=== PATIENT | male | born 1960 | race Caucasian/White ===

== ENCOUNTER 2016-08-03 07:30 | Emergency (ER) | payer BC ==
[2016-08-03] MEDS ORDERED: Albuterol/Ipratropium 3.0-0.5 MG/3 ML Neb Soln NEB ONE (08:07)
[2016-08-03] MEDS ORDERED: methylPREDNISolone Sodium Succinate 125 MG/2 ML SDV IVPUSH ONE (08:54)
[2016-08-03] MEDS ORDERED: Sodium Chloride 0.9% 10 ML Syringe FLUSH PRN (08:54)
[2016-08-03 08:55] LABS: CHLORIDE,CL 106 mmol/L (98-107); SODIUM,NA 142 mmol/L (136-145)
[2016-08-03] MEDS ORDERED: Furosemide 40 MG/4 ML VIAL IVPUSH ONE (08:57)
--- NOTE | 2016-08-03 08:57 | EDM.PDOC ---
ED HISTORY OF PRESENT ILLNESS - General Chief Complaint: Respiratory Problem Stated Complaint: SOB Time Seen by Provider: 08/03/16 08:05 Source of Information: Reports: Patient History Limitations: Reports: No limitations - History of Present Illness INITIAL COMMENTS - FREE TEXT/NARRATIVE: Patient reports of influenza type symptoms 2 weeks ago. He no longer is having the fevers or aches, but he has become progressively more short of breath. He no longer smokes but has 35 pack year history. History of HTN, irregular heart beat, hypercholesterolemia, heart failure, COPD. He states that he has had a difficult time sleeping due to feeling extreme shortness of breath. He denies headache, LOC, no nausea, vomiting, fever or chills. No diarrhea or abdominal pain. He does endorse chest pressure. Symptom Onset Date: 08/03/16 Timing/Duration: Reports: Getting worse, Gradual onset Severity: moderate Location, General: Reports: chest Quality: Reports: Pressure - Related Data Allergies/ADRs: Allergies Allergy/AdvReac Type Severity Reaction Status Date / Time No Known Drug Allergies Allergy Other Verified 08/03/16 12:37 Home Meds: Home Meds Carvedilol [Carvedilol] 1 tab PO BID 12/02/14 [History] Furosemide [Furosemide] 1 tab PO DAILY 12/02/14 [History] Warfarin [Coumadin] 1 tab PO DAILY 12/02/14 [History] atorvaSTATin Calcium [Atorvastatin Calcium] 1 tab PO DAILY 12/02/14 [History] Fexofenadine [Lou] 180 mg PO DAILY 08/03/16 [History] Pantoprazole [ProTONIX] 40 mg PO BID 08/03/16 [History] Past Medical History - Past Health History Medical/Surgical History: Denies Medical/Surgical History Cardiovascular History: Reports: Afib, High cholesterol, [place] Other Cardiovascular History: cardioversion Respiratory History: Reports: COPD - Past Surgical History Cardiovascular Surgical History: Reports: Cardiac Ablation Social & Family History - Tobacco Use Smoking Status *Q: Current Every Day Smoker Years of Tobacco use: 25 Packs/Tins Daily: 1 Used Tobacco, but Quit: No Second Hand Smoke Exposure: Yes - Alcohol Use Days Per Week of Alcohol Use: 0 Number of Drinks Per Day: 3 Total Drinks Per Week: 0 - Recreational Drug Use Recreational Drug Use: No ED ROS GENERAL - Review of Systems Review Of Systems: See Below Constitutional: Reports: no symptoms HEENT: Reports: No symptoms Respiratory: Reports: Shortness of Breath Cardiovascular: Reports: Chest pain (described as chest pressure) Endocrine: Reports: no symptoms GI/Abdominal: Reports: No symptoms : Reports: no symptoms Musculoskeletal: Reports: no symptoms Skin: Reports: no symptoms Neurological: Reports: No Symptoms Psychiatric: Reports: No symptoms Hematologic/Lymphatic: Reports: no symptoms Immunologic: Reports: no symptoms ED EXAM, GENERAL - Physical Exam Exam: See Below Exam Limited By: No limitations General Appearance: alert, WD/WN, mild distress Eye Exam: bilateral eye: EOMI, PERRL Ears: normal TMs Nose: normal inspection Throat/Mouth: Normal inspection, Normal oropharynx Head: atraumatic, normocephalic Neck: normal inspection, supple Respiratory/Chest: no respiratory distress, decreased breath sounds, crackles Cardiovascular: normal peripheral pulses, regular rate, rhythm, no edema GI/Abdominal: normal bowel sounds Back Exam: normal inspection, full range of motion Extremities: normal inspection, normal range of motion, non-tender, normal capillary refill Neurological: alert, oriented, CN II-XII intact, normal cognition, no motor/ sensory deficits, other (He is unable to give me accurate medical history) Psychiatric: normal affect, normal mood Skin Exam: Warm, Dry, Intact Lymphatic: no adenopathy Course - Vital Signs Last Recorded V/S: Last Vital Signs Temp 36.2 C 08/03/16 07:35 Pulse 80 08/03/16 10:35 Resp 18 08/03/16 10:35 BP 122/72 08/03/16 10:35 Pulse Ox 96 08/03/16 10:35 - Orders/Labs/Meds Orders: Active Orders 24 hr Category Date Time Status EKG Documentation Completion [RC] ROUTINE Care 08/03/16 08:05 Active RT Aerosol Therapy [RC] ASDIRECTED Care 08/03/16 08:07 Active Chest 2V [CR] Stat Exams 08/03/16 08:05 Taken Saline Lock Insert [OM.PC] Routine Oth 08/03/16 08:54 Ordered Labs: Laboratory Tests 08/03/16 08/03/16 08/03/16 Range/Units 08:17 08:17 08:17 WBC 6.0 (4.0-10.0) x10^3/uL RBC 4.53 (4.5-6.0) x10^6/uL Hgb 14.5 (14.0-18.0) g/dL Hct 40.6 (40.0-52.0) % MCV 89.6 (78.0-93.0) fL MCH 32.0 (26.0-32.0) pg MCHC 35.7 (32.0-36.0) g/dL RDW Coeff of Meg 12.6 (10.0-15.0) % Plt Count 154 (130-400) x10^3/uL Neut % (Auto) 69.0 (50.0-80.0) % Lymph % (Auto) 18.3 L (25.0-50.0) % [place] % (Auto) 12.2 H (2.0-11.0) % Eos % (Auto) 0.3 (0.0-4.0) % Baso % (Auto) 0.2 (0.2-1.2) % PT 18.3 H (10.0-12.8) SEC INR 1.6 L (2.0-3.5) D-Dimer, Quantitative (<=0.58) mg/LFEU Sodium 142 (136-145) mmol/L Potassium 4.1 (3.5-5.1) mmol/L Chloride 106 (98-107) mmol/L Carbon Dioxide 28 (21-32) mmol/L BUN 15 (7-18) mg/dL Creatinine 0.8 (0.70-1.30) mg/dL Est Cr Clr Drug Dosing TNP Estimated GFR (MDRD) > 60 Glucose 98 (74-106) mg/dL Calcium 8.5 (8.5-10.1) mg/dL Corrected Calcium 9.38 (8.5-10.1) mg/dL Total Bilirubin 1.3 H (0.2-1.0) mg/dL AST 19 (15-37) U/L ALT 28 (16-63) U/L Alkaline Phosphatase 90 (46-116) U/L Creatine Kinase 130 (39-308) U/L Creatine Kinase Index 0.7 (0.0-4.0) % CK-MB (CK-2) 0.9 (0.0-3.6) ng/mL Troponin I < 0.017 (<=0.056) ng/mL C-Reactive Protein 3.5 H (<=0.9) mg/dL B-Natriuretic Peptide 2941 H (<=125) pg/mL Total Protein 6.5 (6.4-8.2) g/dL Albumin 2.9 L (3.4-5.0) g/dL Globulin 3.6 Albumin/Globulin Ratio 0.81 04/10/17 Range/Units 08:17 WBC (4.0-10.0) x10^3/uL RBC (4.5-6.0) x10^6/uL Hgb (14.0-18.0) g/dL Hct (40.0-52.0) % MCV (78.0-93.0) fL MCH (26.0-32.0) pg MCHC (32.0-36.0) g/dL RDW Coeff of Meg (10.0-15.0) % Plt Count (130-400) x10^3/uL Neut % (Auto) (50.0-80.0) % Lymph % (Auto) (25.0-50.0) % [place] % (Auto) (2.0-11.0) % Eos % (Auto) (0.0-4.0) % Baso % (Auto) (0.2-1.2) % PT (10.0-12.8) SEC INR (2.0-3.5) D-Dimer, Quantitative < 0.19 (<=0.58) mg/LFEU Sodium (136-145) mmol/L Potassium (3.5-5.1) mmol/L Chloride (98-107) mmol/L Carbon Dioxide (21-32) mmol/L BUN (7-18) mg/dL Creatinine (0.70-1.30) mg/dL Est Cr Clr Drug Dosing Estimated GFR (MDRD) Glucose (74-106) mg/dL Calcium (8.5-10.1) mg/dL Corrected Calcium (8.5-10.1) mg/dL Total Bilirubin (0.2-1.0) mg/dL AST (15-37) U/L ALT (16-63) U/L Alkaline Phosphatase (46-116) U/L Creatine Kinase (39-308) U/L Creatine Kinase Index (0.0-4.0) % CK-MB (CK-2) (0.0-3.6) ng/mL Troponin I (<=0.056) ng/mL C-Reactive Protein (<=0.9) mg/dL B-Natriuretic Peptide (<=125) pg/mL Total Protein (6.4-8.2) g/dL Albumin (3.4-5.0) g/dL Globulin Albumin/Globulin Ratio Meds: Medications Discontinued Medications Generic Name Dose Route Start Last Admin Trade Name Freq PRN Reason Stop Dose Admin Albuterol/Ipratropium 3 ml 08/03/16 08:07 08/03/16 08:39 Duoneb 3.0-0.5 Mg/3 Ml NEB 08/03/16 08:08 3 ml ONETIME ONE Administration Furosemide 40 mg 08/03/16 08:57 08/03/16 09:08 Lasix IVPUSH 08/03/16 08:58 40 mg NOW ONE Administration Methylprednisolone Sodium Succinate 125 mg 08/03/16 08:54 08/03/16 09:12 Solu-Medrol IVPUSH 08/03/16 08:55 125 mg ONETIME ONE Administration Sodium Chloride 10 ml 08/03/16 08:54 Saline Flush FLUSH ASDIRECTED PRN Keep Vein Open - Re-Assessments/Exams Free Text/Narrative Re-Assessment/Exam: 08/03/16 09:06 Labs, EKG, and chest x-ray ordered. Departure - Departure Time of Disposition: 10:27 Disposition: Home, Self-Care 01 Condition: fair Clinical Impression: CAP (community acquired pneumonia) Acute exacerbation of CHF (congestive heart failure) Qualifiers: Congestive heart failure type: unspecified congestive heart failure type Qualified Code(s): I50.9 - Heart failure, unspecified Instructions: Chronic Obstructive Pulmonary Disease, [id number], Heart Failure, [id number], Community-Acquired Pneumonia, Adult, [id number] Referrals: Torrie Mejía MD [Primary Care Provider] - Forms: ED Department Discharge Additional Instructions: Take your medications as prescribed Follow up wit your primary provider as needed You likely have a beginning pneumonia mixed with an exacerbation of copd and heart failure. Increase your lasix to taking twice daily for 3 days Please call us with any questions or concerns in the meantime. - Problem List & Annotations (1) Acute exacerbation of CHF (congestive heart failure) SNOMED Code(s): 93495912 Code(s): I50.9 - HEART FAILURE, UNSPECIFIED Status: Acute Priority: Low Qualifiers: Congestive heart failure type: unspecified congestive heart failure type Qualified Code(s): I50.9 - Heart failure, unspecified (2) CAP (community acquired pneumonia) SNOMED Code(s): 904568915 Code(s): J18.9 - PNEUMONIA, UNSPECIFIED ORGANISM Status: Acute Priority: Medium - Problem List Review Problem List Initiated/Reviewed/Updated: Yes - My Orders Last 24 Hours: My Active Orders 08/03/16 08:05 EKG Documentation Completion [RC] ROUTINE Chest 2V [CR] Stat 08/03/16 08:07 RT Aerosol Therapy [RC] ASDIRECTED 08/03/16 08:54 Saline Lock Insert [OM.PC] Routine - Assessment/Plan Last 24 Hours: My Active Orders 08/03/16 08:05 EKG Documentation Completion [RC] ROUTINE Chest 2V [CR] Stat 08/03/16 08:07 RT Aerosol Therapy [RC] ASDIRECTED 08/03/16 08:54 Saline Lock Insert [OM.PC] Routine Assessment:: Heart failure Copd exacerbation Community acquired pneumonia Plan: Take your medications as prescribed Follow up wit your primary provider as needed You likely have a beginning pneumonia mixed with an exacerbation of copd and heart failure. Increase your lasix to taking twice daily for 3 days Please call us with any questions or concerns in the meantime.
[2016-08-03 13:24] VITALS: BP 122/72
== END 2016-08-03 10:35 | disposition home or self-care (01) ==
LOC: VM.ED 07:30
DX: J18.9 Pneumonia, unspecified organism (principal); I50.9 Heart failure, unspecified; Z79.899 Other long term (current) drug therapy; Z79.01 Long term (current) use of anticoagulants; F17.210 Nicotine dependence, cigarettes, uncomplicated
CPT/HCPCS: 36415; 71020; 80053; 82550; 82553; 83880; 84484; 85025; 85379; 85610; 86140; 93005; 96374; 96375; 99285; J1940; J2930; 99284-GF

== ENCOUNTER 2016-08-12 09:14 | Emergency (ER) | payer BC ==
[2016-08-12 09:29] VITALS: BP 118/75
--- NOTE | 2016-08-12 09:50 | EDM.PDOC ---
ED HISTORY OF PRESENT ILLNESS - General Chief Complaint: Respiratory Problem Stated Complaint: sob Time Seen by Provider: 08/12/16 09:36 Source of Information: Reports: Patient History Limitations: Reports: No limitations - History of Present Illness INITIAL COMMENTS - FREE TEXT/NARRATIVE: Patient seen by myself 08/03/16 with similar complaints. I did treat for pneumonia, COPD, and heart failure exacerbations. He states he did feel better late last week, but has been getting short of breath again. He states he is not able to lay flat and sleeps or sits with an incline. He also says the shortness of breath worsens with activity and climbing stairs. He denies any symptom changing or worsening since his last visit on 08/03/16 in which [place], PE was ruled out. He did not start the inhaler that I had prescribed due to expense and his insurance having lapsed. He says he has some hot flashes and chills from time to time but denies any fever. No nausea/vomiting, headaches, or chest pressure. No neurologic changes. Symptom Onset Date: 08/03/16 Timing/Duration: Reports: Gradual onset, Intermittent Severity: mild Location, General: Reports: chest Improves with: Reports: Medication Worsens with: Reports: Movement Associated Symptoms (General): Reports: shortness of breath - Related Data Allergies/ADRs: Allergies Allergy/AdvReac Type Severity Reaction Status Date / Time No Known Drug Allergies Allergy Other Verified 08/12/16 09:32 Home Meds: Home Meds Carvedilol [Carvedilol] 1 tab PO BID 12/02/14 [History] Furosemide [Furosemide] 1 tab PO DAILY 12/02/14 [History] Warfarin [Coumadin] 1 tab PO DAILY 12/02/14 [History] atorvaSTATin Calcium [Atorvastatin Calcium] 1 tab PO DAILY 12/02/14 [History] Fexofenadine [Lou] 180 mg PO DAILY 08/03/16 [History] Pantoprazole [ProTONIX] 40 mg PO BID 08/03/16 [History] Past Medical History - Past Health History Medical/Surgical History: Denies Medical/Surgical History Cardiovascular History: Reports: Afib, High cholesterol, [place] Other Cardiovascular History: cardioversion Respiratory History: Reports: COPD - Past Surgical History Cardiovascular Surgical History: Reports: Cardiac Ablation Social & Family History - Tobacco Use Smoking Status *Q: Former Smoker Years of Tobacco use: 25 Packs/Tins Daily: 1 Used Tobacco, but Quit: Yes Month Tobacco Last Used: Apr 2016 Second Hand Smoke Exposure: Yes - Caffeine Use Caffeine Use: Reports: None - Alcohol Use Days Per Week of Alcohol Use: 0 Number of Drinks Per Day: 3 Total Drinks Per Week: 0 - Recreational Drug Use Recreational Drug Use: No ED ROS GENERAL - Review of Systems Review Of Systems: See Below Constitutional: Reports: chills HEENT: Reports: No symptoms Respiratory: Reports: Shortness of Breath Cardiovascular: Reports: No symptoms Endocrine: Reports: no symptoms GI/Abdominal: Reports: No symptoms : Reports: no symptoms Musculoskeletal: Reports: no symptoms Skin: Reports: no symptoms Neurological: Reports: No Symptoms Psychiatric: Reports: No symptoms Hematologic/Lymphatic: Reports: no symptoms Immunologic: Reports: no symptoms ED EXAM, GENERAL - Physical Exam Exam: See Below Exam Limited By: No limitations General Appearance: alert, WD/WN, no apparent distress Eye Exam: bilateral eye: EOMI, PERRL Ears: normal TMs Throat/Mouth: Normal inspection, Normal oropharynx Head: atraumatic, normocephalic Neck: normal inspection, supple, non-tender, full range of motion Respiratory/Chest: no respiratory distress, lungs clear, no accessory muscle use , decreased breath sounds Cardiovascular: normal peripheral pulses, regular rate, rhythm GI/Abdominal: normal bowel sounds Extremities: normal inspection, normal range of motion, non-tender, no pedal edema, normal capillary refill Neurological: alert, oriented, CN II-XII intact, normal cognition, normal gait Psychiatric: normal affect, normal mood Skin Exam: Warm, Dry, Intact, Normal color Lymphatic: no adenopathy Course - Vital Signs Last Recorded V/S: Last Vital Signs Temp 35.8 C 08/12/16 09:25 Pulse 100 08/12/16 09:25 Resp 16 08/12/16 09:25 BP 118/75 08/12/16 09:25 Pulse Ox 95 08/12/16 09:25 Departure - Departure Time of Disposition: 11:08 Disposition: Home, Self-Care 01 Condition: good Clinical Impression: Congestive heart failure Instructions: Shortness of Breath, Wxii-le-Niad, Chronic Obstructive Pulmonary Disease Exacerbation, [id number], Heart Failure, [id number] Forms: ED Department Discharge Additional Instructions: You do appear to be having an exacerbation of COPD as well as additional symptoms related to your CHF. I recommend a follow up visit with your primary doctor to have an increase in your lasix if needed, you may also need your lungs evaluated for worsening of your COPD. I did give you some additional lasix today, as well as a nebulizer. Please call with any questions or concerns. - Problem List & Annotations (1) COPD exacerbation SNOMED Code(s): 567097639, 950131096 Code(s): J44.1 - CHRONIC OBSTRUCTIVE PULMONARY DISEASE W (ACUTE) EXACERBATION Status: Acute Priority: Low Current Visit: No (2) Congestive heart failure SNOMED Code(s): 79996794 Code(s): I50.9 - HEART FAILURE, UNSPECIFIED Status: Acute Priority: Low Current Visit: Yes Qualifiers: Congestive heart failure type: unspecified congestive heart failure type Congestive heart failure chronicity: acute on chronic Qualified Code(s): I50.9 - Heart failure, unspecified - Problem List Review Problem List Initiated/Reviewed/Updated: Yes - Assessment/Plan Assessment:: COPD exacerbation Heart Failure Plan: You do appear to be having an exacerbation of COPD as well as additional symptoms related to your CHF. I recommend a follow up visit with your primary doctor to have an increase in your lasix if needed, you may also need your lungs evaluated for worsening of your COPD. I did give you some additional lasix today, as well as a nebulizer. Please call with any questions or concerns.
[2016-08-12] MEDS ORDERED: Albuterol/Ipratropium 3.0-0.5 MG/3 ML Neb Soln NEB ONE (09:54)
[2016-08-12 10:45] LABS: CHLORIDE,CL 107 mmol/L (98-107); SODIUM,NA 143 mmol/L (136-145)
[2016-08-12] MEDS ORDERED: Furosemide 40 MG Tab PO ONE (11:00)
== END 2016-08-12 11:15 | disposition home or self-care (01) ==
LOC: VM.ED 09:14
DX: I50.9 Heart failure, unspecified (principal); I48.91 Unspecified atrial fibrillation; E78.00 Pure hypercholesterolemia, unspecified; I25.2 Old myocardial infarction; J44.9 Chronic obstructive pulmonary disease, unspecified; Z79.899 Other long term (current) drug therapy; Z87.891 Personal history of nicotine dependence
CPT/HCPCS: 36415; 71020; 80053; 83605; 83880; 85025; 86140; 94640; 99283; A9270

== ENCOUNTER 2017-07-27 07:10 | Emergency (ER) | payer OTHER, BC ==
--- NOTE | 2017-07-27 07:38 | EDM.PDOC ---
ED HPI GENERAL MEDICAL PROBLEM - General Chief Complaint: Laceration Stated Complaint: LACERATION Time Seen by Provider: 07/27/17 07:34 Source of Information: Reports: Patient, RN, RN Notes Reviewed History Limitations: Reports: No Limitations - History of Present Illness INITIAL COMMENTS - FREE TEXT/NARRATIVE: Patient presents to the ED at [facility] after he sustained a laceration to the right arm. Patient states he was putting in a lightbulb, when the bulb broke , causing the laceration. This is a work related injury. Patient denies any numbness, tingling, or paresthesia of any extremity. No previous injuries to the right arm. Onset: Today - Related Data Allergies Allergy/AdvReac Type Severity Reaction Status Date / Time No Known Drug Allergies Allergy Other Verified 08/12/16 09:32 Home Meds: Home Meds Carvedilol 1 tab PO BID 12/02/14 [History] Furosemide 1 tab PO DAILY 12/02/14 [History] Warfarin [Coumadin] 1 tab PO DAILY 12/02/14 [History] atorvaSTATin Calcium [Atorvastatin Calcium] 1 tab PO DAILY 12/02/14 [History] Fexofenadine [Lou] 180 mg PO DAILY 08/03/16 [History] Pantoprazole [ProTONIX] 40 mg PO BID 08/03/16 [History] Past Medical History - Past Health History Medical/Surgical History: Denies Medical/Surgical History Cardiovascular History: Reports: Afib, High Cholesterol, [place] Other Cardiovascular History: cardioversion Respiratory History: Reports: COPD - Past Surgical History Cardiovascular Surgical History: Reports: Cardiac Ablation Social & Family History - Tobacco Use Smoking Status *Q: Former Smoker Years of Tobacco use: 25 Packs/Tins Daily: 1 Used Tobacco, but Quit: Yes Month/Year Tobacco Last Used: Apr 2016 Second Hand Smoke Exposure: Yes - Caffeine Use Caffeine Use: Reports: None - Alcohol Use Days Per Week of Alcohol Use: 0 Number of Drinks Per Day: 3 Total Drinks Per Week: 0 - Recreational Drug Use Recreational Drug Use: No ED ROS GENERAL - Review of Systems Review Of Systems: See Below Constitutional: Denies: Fever, Chills, Weakness Respiratory: Denies: Shortness of Breath, Cough Cardiovascular: Denies: Chest Pain, Palpitations GI/Abdominal: Denies: Abdominal Pain, Nausea, Vomiting Skin: Reports: Wound (laceration to right arm) Neurological: Reports: No Symptoms ED EXAM, SKIN/RASH Exam: See Below Exam Limited By: No Limitations General Appearance: Alert, No Apparent Distress Respiratory/Chest: No Respiratory Distress, Lungs Clear, Normal Breath Sounds Cardiovascular: Normal Peripheral Pulses, Regular Rate, Rhythm Peripheral Pulses: 2+: Radial (L), Radial (R) GI/Abdominal: Normal Bowel Sounds, Soft, Non-Tender Neurological: Alert, Oriented Skin: Warm, Dry, Wound/Incision (laceration to the right arm; minimal bleed; wound clean) Location, Skin: Upper Extremity, Right ED SKIN PROCEDURES - Laceration/Wound Repair Right Wrist Lac/Wound length In cm: 2 Appearance: Subcutaneous, Linear, Clean Distal NVT: Neuro & Vascular Intact, No Tendon Injury Anesthetic Type: Local Local Anesthesia - Lidocaine (Xylocaine): 2% with EPI Local Anesthetic Volume: 5cc Skin Prep: Chlorhexidine (Hibiciens), Saline Saline Irrigation (cc's): 500 Exploration/Debridement/Repair: Wound Explored, In a Bloodless Field, Explored to Base, No Foreign Material Found, Wound Margins Revised Closed with: Sutures Suture Size: 4-0 # of Sutures: 3 Suture Type: Nylon, Interrupted, Simple Sterile Dressing Applied: Nurse Tetanus Status Addressed: Yes Complications: No Course - Orders/Labs/Meds Orders: Active Orders 24 hr Category Date Time Status EKG 12 Lead [EKG Documentation Completion] [RC] STAT Care 07/27/17 07:35 Inactive Meds: Medications Discontinued Medications Generic Name Dose Route Start Last Admin Trade Name Dottie PRN Reason Stop Dose Admin Lidocaine/Epinephrine 20 ml 07/27/17 08:04 Xylocaine 2% With Epinephrine 1:100,000 INJECT 07/27/17 08:05 ONETIME ONE Departure - Departure Time of Disposition: 08:39 Disposition: Home, Self-Care 01 Condition: Good Clinical Impression: Encounter related to worker's compensation claim Wrist laceration Qualifiers: Encounter type: initial encounter Laterality: right Qualified Code(s): S61.511A - Laceration without foreign body of right wrist, initial encounter - Discharge Information Instructions: Laceration Care, Adult, [place]u-en-Awja, Stitches, Martha, or Adhesive Wound Closure, [id number] Referrals: Debby Montelongo MD [Primary Care Provider] - Forms: ED Department Discharge Additional Instructions: 1. Stay well hydrated and rest 2. Leave bandage on for 24 hours, then remove 3. Keep area clean and dry 4. May shower/bathe as usual 5. See Dr. Montelongo in 10 days for a recheck and possible suture removal 6. Call with any questions/concerns - Problem List Review Problem List Initiated/Reviewed/Updated: Yes - My Orders Last 24 Hours: My Active Orders 07/27/17 07:35 EKG 12 Lead [EKG Documentation Completion] [RC] STAT - Assessment/Plan Last 24 Hours: My Active Orders 07/27/17 07:35 EKG 12 Lead [EKG Documentation Completion] [RC] STAT
[2017-07-27] MEDS ORDERED: Lidocaine 2% with EPINEPHrine 1:100,000 20 ML MDV INJECT ONE (08:04)
[2017-07-27 16:28] VITALS: BP 108/61
== END 2017-07-27 08:50 | disposition home or self-care (01) ==
LOC: VM.ED 07:10
DX: S61.511A Laceration without foreign body of right wrist, initial encounter (principal); I48.91 Unspecified atrial fibrillation; E78.00 Pure hypercholesterolemia, unspecified; I25.2 Old myocardial infarction; J44.9 Chronic obstructive pulmonary disease, unspecified; Y99.0 Civilian activity done for income or pay; Z87.891 Personal history of nicotine dependence; Z79.899 Other long term (current) drug therapy; W26.8XXA Contact with other sharp object(s), not elsewhere classified, initial encounter
CPT/HCPCS: 12001; 99283

== ENCOUNTER 2017-12-03 10:34 | Emergency (ER) | payer BC, OTHER ==
[2017-12-03 10:43] VITALS: BP 134/78
[2017-12-03] MEDS: Lidocaine 1% 30 ML SDV INJECT ONE (11:15)
--- NOTE | 2017-12-03 11:28 | EDM.PDOC ---
ED HPI GENERAL MEDICAL PROBLEM - General Chief Complaint: Laceration Stated Complaint: INJURED AT WORK Time Seen by Provider: 12/03/17 10:57 Source of Information: Reports: Patient History Limitations: Reports: No Limitations - History of Present Illness INITIAL COMMENTS - FREE TEXT/NARRATIVE: The patient is on Coumadin. He was not wearing any gloves. He was loosening a bolt when his hand slipped and lacerated his right hand. He is right-handed. He has had a tetanus booster in 2014. We did have to apply sutures. I will have him follow-up with his primary doctor and have the sutures removed. This is a WSI claim. I did give him modified duty. However he did want the rest of today off but I did give him modified duty because of the Coumadin. Onset: Today Location: Reports: Upper Extremity, Right Severity: Moderate Treatments MEMS ENGINEER: Reports: Other (see below) (Pressure) - Related Data Allergies Allergy/AdvReac Type Severity Reaction Status Date / Time No Known Drug Allergies Allergy Other Verified 12/03/17 10:44 Home Meds: Home Meds Carvedilol 25 mg PO BID 12/02/14 [History] Furosemide 1 tab PO DAILY 12/02/14 [History] Warfarin [Coumadin] 1 tab PO DAILY 12/02/14 [History] atorvaSTATin Calcium [Atorvastatin Calcium] 1 tab PO DAILY 12/02/14 [History] Fexofenadine [Lou] 180 mg PO DAILY 08/03/16 [History] Pantoprazole [ProTONIX] 40 mg PO BID 08/03/16 [History] Amiodarone [Cordarone] 200 mg PO DAILY 12/03/17 [History] Lisinopril [Prinivil] 10 mg PO DAILY 12/03/17 [History] Umeclidinium Brm/Vilanterol Tr [Anoro Ellipta 62.5-25 MCG] 1 puff IH DAILY 12/03 [History] buPROPion HCl [Wellbutrin Xl] 150 mg PO DAILY 12/03/17 [History] Past Medical History - Past Health History Medical/Surgical History: Denies Medical/Surgical History Cardiovascular History: Reports: Afib, High Cholesterol, [place] Other Cardiovascular History: cardioversion Respiratory History: Reports: COPD - Past Surgical History Cardiovascular Surgical History: Reports: Cardiac Ablation Social & Family History - Tobacco Use Smoking Status *Q: Unknown Ever Smoked - Caffeine Use Caffeine Use: Reports: None ED ROS GENERAL - Review of Systems Review Of Systems: ROS reveals no pertinent complaints other than HPI. ED EXAM, SKIN/RASH Exam: See Below Exam Limited By: No Limitations General Appearance: Alert, WD/WN, Mild Distress Ears: Normal External Exam Nose: Normal Inspection Throat/Mouth: Normal Inspection Head: Atraumatic, Normocephalic Neck: Normal Inspection, Supple Respiratory/Chest: No Respiratory Distress, Lungs Clear Cardiovascular: Normal Peripheral Pulses, Regular Rate, Rhythm Extremities: Other (3 cm laceration on the back of his hand. This is in a semi- lunar crescent shape. The wound is gaping and through the dermis.) Neurological: Alert, Oriented Psychiatric: Normal Affect Skin: Warm, Dry ED SKIN PROCEDURES - Laceration/Wound Repair Right Dorsal Hand Appearance: Superficial Distal NVT: Neuro & Vascular Intact Anesthetic Type: Local Local Anesthesia - Lidocaine (Xylocaine): 1% Plain Local Anesthetic Volume: Other (10) Saline Irrigation (cc's): 500 Exploration/Debridement/Repair: Wound Explored, In a Bloodless Field, Explored to Base, No Foreign Material Found Closed with: Sutures Suture Size: 4-0 # of Sutures: 6 Suture Type: Interrupted Drain Placement: No Sterile Dressing Applied: Nurse Tetanus Status Addressed: Yes Complications: No Progress/Comments: Nominal amount of blood loss. Patient tolerated the procedure quite well. Course - Vital Signs Last Recorded V/S: Last Vital Signs Temp 37.0 C 12/03/17 10:35 Pulse 88 12/03/17 10:35 Resp 18 12/03/17 10:35 BP 134/78 12/03/17 10:35 Pulse Ox 96 12/03/17 10:35 - Orders/Labs/Meds Meds: Medications Discontinued Medications Generic Name Dose Route Start Last Admin Trade Name Dottie PRN Reason Stop Dose Admin Lidocaine HCl 30 ml 12/03/17 11:01 12/03/17 11:15 Xylocaine-Mpf 1% INJECT 12/03/17 11:02 30 ml ONETIME ONE Administration Departure - Departure Time of Disposition: 11:28 Disposition: Home, Self-Care 01 Condition: Good Clinical Impression: Laceration of hand, right Qualifiers: Encounter type: initial encounter Foreign body presence: without foreign body Qualified Code(s): S61.411A - Laceration without foreign body of right hand, initial encounter - Discharge Information Instructions: Laceration Care, Adult Referrals: Debby Montelongo MD [Primary Care Provider] - Forms: ED Department Discharge, ED Return to Work/School Form Additional Instructions: Follow-up in 1 week for suture removal with Debby Montelongo if available. Change dressing daily. Look for signs of infection. Allow the soapy shower water to irrigate over the wound if tolerable. Apply triple antibiotic ointment daily. Keep clean. Sutures placed.
== END 2017-12-03 11:50 | disposition home or self-care (01) ==
LOC: VM.ED 10:34
DX: S61.411A Laceration without foreign body of right hand, initial encounter (principal); E78.00 Pure hypercholesterolemia, unspecified; I48.91 Unspecified atrial fibrillation; I25.2 Old myocardial infarction; Z79.01 Long term (current) use of anticoagulants; Z79.899 Other long term (current) drug therapy; W26.8XXA Contact with other sharp object(s), not elsewhere classified, initial encounter
CPT/HCPCS: 12001; 12002; 99283

== ENCOUNTER 2018-08-10 10:16 | Emergency (ER) | payer OTHER ==
[2018-08-10] MEDS ORDERED: Sodium Chloride 0.9% 1,000 ML IV ONE ×3 (10:36→11:38)
[2018-08-10] MEDS ORDERED: Sodium Chloride 0.9% 10 ML Syringe FLUSH PRN (10:36)
[2018-08-10 11:24] LABS: CHLORIDE,CL 107 mmol/L (98-107); SODIUM,NA 142 mmol/L (136-145)
[2018-08-10 11:25] LABS: ANION GAP 14.4 mmol/L (10-20)
[2018-08-10] MEDS ORDERED: Sodium Chloride 0.9% 500 ML IV SCH (11:30)
[2018-08-10] MEDS ORDERED: Fluorescein 1 MG Ophth Strip EYERT ONE (11:32)
[2018-08-10] MEDS ORDERED: Sodium Chloride 0.9% 500 ML IV ONE (11:34)
[2018-08-10] MEDS ORDERED: Proparacaine 0.5% Ophth Soln 15 ML Bottle EYERT PRN (11:34)
--- NOTE | 2018-08-10 11:37 | EDM.PDOC ---
ED HPI GENERAL MEDICAL PROBLEM - General Chief Complaint: Cardiovascular Problem Stated Complaint: RACING HEART Time Seen by Provider: 08/10/18 10:18 Source of Information: Reports: Patient History Limitations: Reports: No Limitations - History of Present Illness INITIAL COMMENTS - FREE TEXT/NARRATIVE: Pt. presents to ER with complaints of palpitations that started this AM while he was hanging sheet rock today. Pt. has a history of dilated cardiomyopathy, CHF, and mitral regurgitation. He has a history of a-fib with occasional episodes of RVR. He also has a history of previous v-tach. Pt. has an AICD implanted and this did not discharge during the episode of palpitations this AM. Symptoms had resolved by the time he arrived to ER. He complains of headache and fatigue. No shortness of breath. According to his medical record he has had episodes of syncope in the past as well. Pt. denies any recent illness. No chest pain. No nausea, vomiting, or diarrhea. No abdominal pain. Denies any fever or chills. No cough. Pt. also complains of discomfort in his R eye. He states that he has sheet rock debris in the eye. Denies any vision loss or change. Onset: Today Location: Reports: Generalized Left Headache Pain Score (Numeric/FACES): 8 - Related Data Allergies Allergy/AdvReac Type Severity Reaction Status Date / Time No Known Drug Allergies Allergy Other Verified 08/10/18 10:47 Home Meds: Home Meds Carvedilol 25 mg PO BID 12/02/14 [History] Furosemide 1 tab PO DAILY 12/02/14 [History] Warfarin [Coumadin] 1 tab PO DAILY 12/02/14 [History] atorvaSTATin Calcium [Atorvastatin Calcium] 1 tab PO DAILY 12/02/14 [History] Fexofenadine [Lou] 180 mg PO DAILY 08/03/16 [History] Pantoprazole [ProTONIX] 40 mg PO BID 08/03/16 [History] Amiodarone [Cordarone] 200 mg PO DAILY 12/03/17 [History] Lisinopril [Prinivil] 10 mg PO DAILY 12/03/17 [History] Umeclidinium Brm/Vilanterol Tr [Anoro Ellipta 62.5-25 MCG] 1 puff IH DAILY 12/03 [History] buPROPion HCl [Wellbutrin Xl] 150 mg PO DAILY 12/03/17 [History] Past Medical History - Past Health History Medical/Surgical History: Denies Medical/Surgical History HEENT History: Reports: Allergic Rhinitis, Other (See Below) Other HEENT History: allergic conjunctivitis Cardiovascular History: Reports: Afib, Heart Failure, High Cholesterol, [place], Pacemaker, Syncope Other Cardiovascular History: cardioversion. afib with RV. mitral regurgitation. dilated cardiomyopathy. hx Vtach Respiratory History: Reports: Bronchitis, Recurrent, COPD Gastrointestinal History: Reports: Colon Polyp, Gastritis, GERD, Helicobacter Pylori - Past Surgical History Cardiovascular Surgical History: Reports: AICD, Cardiac Ablation Other Cardiovascular Surgeries/Procedures: Biotronik Single chamber defibrillator(ICD) GI Surgical History: Reports: Colonoscopy, EGD Social & Family History - Tobacco Use Smoking Status *Q: Current Every Day Smoker Years of Tobacco use: 38 Packs/Tins Daily: 0.3 - Caffeine Use Caffeine Use: Reports: None - Recreational Drug Use Recreational Drug Use: No ED ROS GENERAL - Review of Systems Review Of Systems: See Below Constitutional: Reports: No Symptoms HEENT: Reports: No Symptoms Respiratory: Reports: No Symptoms Cardiovascular: Reports: Palpitations GI/Abdominal: Reports: No Symptoms : Reports: No Symptoms Musculoskeletal: Reports: No Symptoms Skin: Reports: No Symptoms Neurological: Reports: No Symptoms Psychiatric: Reports: No Symptoms Hematologic/Lymphatic: Reports: No Symptoms Immunologic: Reports: No Symptoms ED EXAM, GENERAL - Physical Exam Exam: See Below Exam Limited By: No Limitations General Appearance: Alert, WD/WN, No Apparent Distress Eye Exam: Bilateral Eye: EOMI, Foreign Body (small, white foreign body noted in center of pupil), PERRL Throat/Mouth: Normal Inspection, Normal Lips, Normal Teeth, Other (oral mucosa is dry) Head: Atraumatic, Normocephalic Neck: Normal Inspection, Supple, Non-Tender Respiratory/Chest: No Respiratory Distress, Lungs Clear, Normal Breath Sounds, No Accessory Muscle Use Cardiovascular: Normal Peripheral Pulses, No Edema, No JVD, Irregularly Irregular Peripheral Pulses: 3+: Radial (L), Radial (R) GI/Abdominal: Normal Bowel Sounds, Soft, Non-Tender, No Organomegaly, No Distention, No Mass (Male) Exam: Deferred Rectal (Males) Exam: Deferred Back Exam: Normal Inspection, Full Range of Motion Extremities: Normal Inspection, Normal Range of Motion, Non-Tender, Normal Capillary Refill Neurological: Alert, Oriented, CN II-XII Intact, Normal Cognition, Normal Gait, Normal Reflexes Psychiatric: Normal Affect, Normal Mood Skin Exam: Warm, Dry Course - Vital Signs Last Recorded V/S: Last Vital Signs Temp 36.9 C 08/10/18 10:18 Pulse 63 08/10/18 12:06 Resp 16 08/10/18 11:10 BP 97/42 L 08/10/18 12:06 Pulse Ox 90 L 08/10/18 11:10 - Orders/Labs/Meds Orders: Active Orders 24 hr Category Date Time Status EKG Documentation Completion [RC] STAT Care 08/10/18 10:32 Active Sodium Chloride 0.9% [Normal Saline] 1,000 ml Med 08/10/18 11:38 Active IV .BOLUS Sodium Chloride 0.9% [Saline Flush] Med 08/10/18 10:36 Active 10 ml FLUSH ASDIRECTED PRN Peripheral IV Insertion Adult [OM.PC] Routine Oth 08/10/18 10:36 Ordered Medication Orders Sodium Chloride (Normal Saline) 1,000 mls @ 1,000 mls/hr IV .BOLUS ONE Stop: 08/10/18 12:37 Last Admin: 08/10/18 11:40 Dose: 1,000 mls/hr Sodium Chloride (Saline Flush) 10 ml FLUSH ASDIRECTED PRN PRN Reason: Keep Vein Open Labs: Laboratory Tests 08/10/18 08/10/18 08/10/18 Range/Units 10:47 10:47 10:47 WBC 6.6 (4.0-10.0) x10^3/uL RBC 4.45 L (4.5-6.0) x10^6/uL Hgb 14.8 (14.0-18.0) g/dL Hct 41.6 (40.0-52.0) % MCV 93.5 H D (78.0-93.0) fL MCH 33.3 H (26.0-32.0) pg MCHC 35.6 (32.0-36.0) g/dL RDW Coeff of Meg 13.0 (10.0-15.0) % Plt Count 135 D (130-400) x10^3/uL Neut % (Auto) 66.5 (50.0-80.0) % Lymph % (Auto) 23.6 L (25.0-50.0) % [place] % (Auto) 7.9 (2.0-11.0) % Eos % (Auto) 1.8 (0.0-4.0) % Baso % (Auto) 0.2 (0.2-1.2) % PT 32.9 H (10.0-12.8) SEC INR 2.9 (2.0-3.5) Sodium 142 (136-145) mmol/L Potassium 4.4 (3.5-5.1) mmol/L Chloride 107 (98-107) mmol/L Carbon Dioxide 25 (21-32) mmol/L Anion Gap 14.4 (10-20) mmol/L BUN 45 H D (7-18) mg/dL Creatinine 1.5 H (0.70-1.30) mg/dL Est Cr Clr Drug Dosing TNP Estimated GFR (MDRD) 48 Glucose 137 H (74-106) mg/dL Calcium 8.6 (8.5-10.1) mg/dL Corrected Calcium 9.00 (8.5-10.1) mg/dL Phosphorus 3.7 (2.6-4.7) mg/dL Magnesium 2.0 (1.8-2.4) mg/dL Total Bilirubin 1.2 H (0.2-1.0) mg/dL AST 25 (15-37) U/L ALT 29 (16-63) U/L Alkaline Phosphatase 81 (46-116) U/L Troponin I < 0.017 (<=0.056) ng/mL NT-Pro-B Natriuret Pep (<=125) pg/mL Total Protein 6.3 L (6.4-8.2) g/dL Albumin 3.5 (3.4-5.0) g/dL Globulin 2.8 Albumin/Globulin Ratio 1.25 TSH, Ultra Sensitive 1.193 (0.358-3.74) uIU/mL 08/10/18 Range/Units 10:47 WBC (4.0-10.0) x10^3/uL RBC (4.5-6.0) x10^6/uL Hgb (14.0-18.0) g/dL Hct (40.0-52.0) % MCV (78.0-93.0) fL MCH (26.0-32.0) pg MCHC (32.0-36.0) g/dL RDW Coeff of Meg (10.0-15.0) % Plt Count (130-400) x10^3/uL Neut % (Auto) (50.0-80.0) % Lymph % (Auto) (25.0-50.0) % [place] % (Auto) (2.0-11.0) % Eos % (Auto) (0.0-4.0) % Baso % (Auto) (0.2-1.2) % PT (10.0-12.8) SEC INR (2.0-3.5) Sodium (136-145) mmol/L Potassium (3.5-5.1) mmol/L Chloride (98-107) mmol/L Carbon Dioxide (21-32) mmol/L Anion Gap (10-20) mmol/L BUN (7-18) mg/dL Creatinine (0.70-1.30) mg/dL Est Cr Clr Drug Dosing Estimated GFR (MDRD) Glucose (74-106) mg/dL Calcium (8.5-10.1) mg/dL Corrected Calcium (8.5-10.1) mg/dL Phosphorus (2.6-4.7) mg/dL Magnesium (1.8-2.4) mg/dL Total Bilirubin (0.2-1.0) mg/dL AST (15-37) U/L ALT (16-63) U/L Alkaline Phosphatase (46-116) U/L Troponin I (<=0.056) ng/mL NT-Pro-B Natriuret Pep 439 H (<=125) pg/mL Total Protein (6.4-8.2) g/dL Albumin (3.4-5.0) g/dL Globulin Albumin/Globulin Ratio TSH, Ultra Sensitive (0.358-3.74) uIU/mL Meds: Medications Generic Name Dose Route Start Last Admin Trade Name Freq PRN Reason Stop Dose Admin Sodium Chloride 1,000 mls @ 1,000 mls/hr 08/10/18 11:38 08/10/18 11:40 Normal Saline IV 08/10/18 12:37 1,000 mls/hr .BOLUS ONE Administration Sodium Chloride 10 ml 08/10/18 10:36 Saline Flush FLUSH ASDIRECTED PRN Keep Vein Open Discontinued Medications Generic Name Dose Route Start Last Admin Trade Name Dottie PRN Reason Stop Dose Admin Fluorescein Sodium 1 mg 08/10/18 11:32 08/10/18 11:43 Ful-Alysia EYERT 08/10/18 11:33 1 mg ONETIME ONE Administration Sodium Chloride 1,000 mls @ 1,000 mls/hr 08/10/18 10:36 08/10/18 10:40 Normal Saline IV 08/10/18 11:35 1,000 mls/hr .BOLUS ONE Administration Sodium Chloride 1,000 mls @ 1,000 mls/hr 08/10/18 11:27 Normal Saline IV 08/10/18 12:26 .BOLUS ONE Sodium Chloride 500 mls @ 100 mls/hr 08/10/18 11:30 Normal Saline IV ASDIRECTED MARILIN Sodium Chloride 500 mls @ 500 mls/hr 08/10/18 11:34 Normal Saline IV 08/10/18 12:33 ONETIME ONE Proparacaine HCl 1 ml 08/10/18 11:34 Proparacaine 0.5% Ophth Soln EYERT ASDIRECTED PRN Other Proparacaine HCl 1 ml 08/10/18 11:41 08/10/18 11:45 Proparacaine 0.5% Ophth Soln EYERT 08/10/18 11:42 2 drop ONETIME ONE Administration - Re-Assessments/Exams Free Text/Narrative Re-Assessment/Exam: Pt. was given a total of 2 liters of normal saline. He was hypotensive initially but after his fluids he was normotensive. Reported feeling much better and states that headache resolved. Denies any further weakness or lightheadedness. Pt. R eye was examined. Flourscein exam reveals a corneal abrasion mid pupil. No material noted to underside of eyelids. A small white spec was liberated from the eye with a cotton-tipped applicator. Departure - Departure Time of Disposition: 12:27 Disposition: Home, Self-Care 01 Clinical Impression: Palpitations, Dehydration, Corneal abrasion Instructions: Corneal Abrasion, [id number], Dehydration, Adult, [id number] Referrals: Debby Montelongo MD [Primary Care Provider] - Forms: ED Department Discharge Additional Instructions: vigamox 1 drop three times daily for 7 days Drink plenty of fluids Follow-up in clinic in 7-10 days, sooner if racing heart, chest pain, or lightheadedness. - My Orders Last 24 Hours: My Active Orders 08/10/18 10:32 EKG Documentation Completion [RC] STAT 08/10/18 10:36 Sodium Chloride 0.9% [Saline Flush] 10 ml FLUSH ASDIRECTED PRN Peripheral IV Insertion Adult [OM.PC] Routine 08/10/18 11:38 Sodium Chloride 0.9% [Normal Saline] 1,000 ml IV .BOLUS - Assessment/Plan Last 24 Hours: My Active Orders 08/10/18 10:32 EKG Documentation Completion [RC] STAT 08/10/18 10:36 Sodium Chloride 0.9% [Saline Flush] 10 ml FLUSH ASDIRECTED PRN Peripheral IV Insertion Adult [OM.PC] Routine 08/10/18 11:38 Sodium Chloride 0.9% [Normal Saline] 1,000 ml IV .BOLUS Plan: vigamox 1 drop three times daily for 7 days Hold lasix tomorrow Drink plenty of fluids Follow-up in clinic in 7-10 days, sooner if racing heart, chest pain, or lightheadedness.
[2018-08-10] MEDS ORDERED: Proparacaine 0.5% Ophth Soln 15 ML Bottle EYERT ONE (11:41)
[2018-08-10 13:20] VITALS: BP 104/49
== END 2018-08-10 12:40 | disposition home or self-care (01) ==
LOC: VM.ED 10:16
DX: R00.2 Palpitations (principal); E86.0 Dehydration; T15.01XA Foreign body in cornea, right eye, initial encounter; I48.91 Unspecified atrial fibrillation; I25.2 Old myocardial infarction; I50.9 Heart failure, unspecified; E78.00 Pure hypercholesterolemia, unspecified; F17.210 Nicotine dependence, cigarettes, uncomplicated; Z79.82 Long term (current) use of aspirin; Z79.899 Other long term (current) drug therapy; Z79.01 Long term (current) use of anticoagulants; Z95.0 Presence of cardiac pacemaker; X58.XXXA Exposure to other specified factors, initial encounter
CPT/HCPCS: 36415; 80053; 83735; 83880; 84100; 84443; 84484; 85025; 85610; 93005; 96360; 96361; 99285; J7030

== ENCOUNTER 2018-11-22 17:11 | Emergency (ER) | payer OTHER ==
[2018-11-22 17:44] VITALS: BP 94/63; PULSE 83
[2018-11-22] MEDS ORDERED: Sodium Chloride 0.9% 10 ML Syringe FLUSH PRN (17:45)
--- NOTE | 2018-11-22 18:18 | CR ---
[id number] RAD/RAD Chest PA or AP 1V EXAM: FRONTAL CHEST INDICATION: Nausea and vomiting. COMPARISON: August 12, 2016. DISCUSSION: Hyperinflation is consistent with chronic obstructive pulmonary disease. No acute infiltrates are identified. Interim placement of a left subclavian approach pacemaker-ICD lead tip overlying the right ventricle. IMPRESSION: 1. Chronic obstructive pulmonary disease. No acute findings. Hakeem Burns MD 11/22/18 [id number] Thank you for allowing us to participate in the care of your patient.
[2018-11-22] MEDS ORDERED: Ondansetron 4 MG/2 ML SDV IVPUSH ONE (18:39)
[2018-11-22] MEDS ORDERED: Sodium Chloride 0.9% 1,000 ML IV ONE ×2 (18:39→19:25)
[2018-11-22 18:52] LABS: CHLORIDE,CL 107 mmol/L (98-107); SODIUM,NA 142 mmol/L (136-145)
[2018-11-22 18:54] LABS: ANION GAP 15.7 mmol/L (10-20)
--- NOTE | 2018-11-22 20:03 | EDM.PDOC ---
ED HPI GENERAL MEDICAL PROBLEM - General Chief Complaint: Gastrointestinal Problem Stated Complaint: NOT FEELING WELL;THROWING UP Time Seen by Provider: 11/22/18 17:40 Source of Information: Reports: Patient History Limitations: Reports: No Limitations - History of Present Illness INITIAL COMMENTS - FREE TEXT/NARRATIVE: Pt. presents to ER with complaints of nausea, vomiting, and abdominal cramping. Pt. states that he started feeling nauseated yesterday and having some cramping at that time as well. He states that he was seen for similar symptoms 11/02/18 and was seen in the clinic for it. He was found to have severe pre-renal failure , DOMENICO, and COPD exacerbation. Pt. was given IV fluids, and his kidney function has normalized without any intervention other than IV fluids. He refused admission during the last episode. Pt. states that he has vomited approx. 6 times. He states that he last ate some chicken nuggets at around 12:30 and states that he has been vomiting intermittently since then. 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 Pt. denies any fever or chills. During the previous episode, pt. did undergo a CT abdomen and pelvis which was negative for acute pathology. Pt. has a complicated past medical history including atrial fib with ablation, mitral valve replacement, dilated cardiomyopathy, COPD, prior CVA, and continued tobacco smoking. He has a pacemaker/AICD Pt. states that he noticed his stools were darker today as well. He denies any martha bloody stool. Onset: Today Onset Date: 11/21/18 Location: Reports: Abdomen, Generalized Left Abdomen Pain Score (Numeric/FACES): 5 - Related Data Allergies Allergy/AdvReac Type Severity Reaction Status Date / Time No Known Drug Allergies Allergy Other Verified 11/22/18 17:45 Home Meds: Home Meds Carvedilol 25 mg PO BID 12/02/14 [History] Furosemide 1 tab PO DAILY 12/02/14 [History] Warfarin [Coumadin] 1 tab PO DAILY 12/02/14 [History] atorvaSTATin Calcium [Atorvastatin Calcium] 1 tab PO DAILY 12/02/14 [History] Fexofenadine [Lou] 180 mg PO DAILY 08/03/16 [History] Pantoprazole [ProTONIX] 40 mg PO BID 08/03/16 [History] Amiodarone [Cordarone] 200 mg PO DAILY 12/03/17 [History] Lisinopril [Prinivil] 10 mg PO DAILY 12/03/17 [History] Umeclidinium Brm/Vilanterol Tr [Anoro Ellipta 62.5-25 MCG] 1 puff IH DAILY 12/03 [History] buPROPion HCl [Wellbutrin Xl] 150 mg PO DAILY 12/03/17 [History] Past Medical History - Past Health History Medical/Surgical History: Denies Medical/Surgical History HEENT History: Reports: Allergic Rhinitis, Other (See Below) Other HEENT History: allergic conjunctivitis Cardiovascular History: Reports: Afib, Heart Failure, High Cholesterol, [place], Pacemaker, Syncope Other Cardiovascular History: cardioversion. afib with RV. mitral regurgitation. dilated cardiomyopathy. hx Vtach Respiratory History: Reports: Bronchitis, Recurrent, COPD Gastrointestinal History: Reports: Colon Polyp, Gastritis, GERD, Helicobacter Pylori - Past Surgical History Cardiovascular Surgical History: Reports: AICD, Cardiac Ablation Other Cardiovascular Surgeries/Procedures: Biotronik Single chamber defibrillator(ICD) GI Surgical History: Reports: Colonoscopy, EGD Social & Family History - Tobacco Use Smoking Status *Q: Unknown Ever Smoked - Caffeine Use Caffeine Use: Reports: None ED ROS GENERAL - Review of Systems Review Of Systems: See Below Constitutional: Reports: No Symptoms. Denies: Fever, Chills, Malaise, Weakness , Fatigue, Night Sweats, Diaphoresis HEENT: Reports: No Symptoms Respiratory: Reports: No Symptoms Cardiovascular: Reports: No Symptoms Endocrine: Reports: No Symptoms GI/Abdominal: Reports: Abdominal Pain, Nausea, Vomiting Musculoskeletal: Reports: No Symptoms Skin: Reports: No Symptoms Neurological: Reports: No Symptoms Psychiatric: Reports: No Symptoms Hematologic/Lymphatic: Reports: No Symptoms Immunologic: Reports: No Symptoms ED EXAM, GENERAL - Physical Exam Exam: See Below Exam Limited By: No Limitations General Appearance: Alert, WD/WN, No Apparent Distress Throat/Mouth: Normal Inspection, Normal Lips, Normal Teeth, No Airway Compromise , Other (oropharnx is dry) Head: Atraumatic, Normocephalic Neck: Normal Inspection, Supple, Non-Tender, Full Range of Motion Respiratory/Chest: No Respiratory Distress, Lungs Clear, Normal Breath Sounds, No Accessory Muscle Use, Chest Non-Tender Cardiovascular: Normal Peripheral Pulses, Regular Rate, Rhythm, No Edema, No JVD , No Murmur Peripheral Pulses: 4+: Radial (L) GI/Abdominal: Normal Bowel Sounds, Soft, Non-Tender, No Organomegaly, No Distention, No Abnormal Bruit, No Mass, Pelvis Stable (Male) Exam: Deferred Rectal (Males) Exam: Normal Exam, Normal Rectal Tone, Prostate Normal, Heme - Stool Back Exam: Normal Inspection, Full Range of Motion Extremities: Normal Inspection, Normal Range of Motion, Non-Tender, No Pedal Edema, Normal Capillary Refill Neurological: Alert, Oriented, CN II-XII Intact, Normal Cognition, Normal Gait, Normal Reflexes, No Motor/Sensory Deficits Psychiatric: Normal Affect, Normal Mood Skin Exam: Warm, Dry, Intact, Normal Color, No Rash Lymphatic: No Adenopathy Course - Vital Signs Last Recorded V/S: Last Vital Signs Temp 37.0 C 11/22/18 17:40 Pulse 83 11/22/18 17:40 Resp 18 11/22/18 17:40 BP 94/63 11/22/18 17:40 Pulse Ox 95 11/22/18 17:40 - Orders/Labs/Meds Orders: Active Orders 24 hr Category Date Time Status EKG Documentation Completion [RC] STAT Care 11/22/18 17:46 Active Sodium Chloride 0.9% [Normal Saline] 1,000 ml Med 11/22/18 19:25 Active IV .BOLUS Sodium Chloride 0.9% [Saline Flush] Med 11/22/18 17:45 Active 10 ml FLUSH ASDIRECTED PRN Peripheral IV Insertion Adult [OM.PC] Routine Oth 11/22/18 17:47 Ordered Medication Orders Sodium Chloride (Normal Saline) 1,000 mls @ 1,000 mls/hr IV .BOLUS ONE Stop: 11/22/18 20:24 Sodium Chloride (Saline Flush) 10 ml FLUSH ASDIRECTED PRN PRN Reason: Keep Vein Open Labs: Laboratory Tests 11/22/18 11/22/18 11/22/18 Range/Units 18:13 18:13 18:13 WBC 6.8 (4.0-10.0) x10^3/uL RBC 4.46 L (4.5-6.0) x10^6/uL Hgb 15.1 (14.0-18.0) g/dL Hct 41.8 (40.0-52.0) % MCV 93.7 H (78.0-93.0) fL MCH 33.9 H (26.0-32.0) pg MCHC 36.1 H (32.0-36.0) g/dL RDW Coeff of Meg 13.4 (10.0-15.0) % Plt Count 155 (130-400) x10^3/uL Neut % (Auto) 66.3 (50.0-80.0) % Lymph % (Auto) 21.5 L (25.0-50.0) % [place] % (Auto) 10.1 (2.0-11.0) % Eos % (Auto) 1.8 (0.0-4.0) % Baso % (Auto) 0.3 (0.2-1.2) % PT 26.9 H (10.0-12.8) SEC INR 2.4 (2.0-3.5) Sodium 142 (136-145) mmol/L Potassium 4.7 (3.5-5.1) mmol/L Chloride 107 (98-107) mmol/L Carbon Dioxide 24 D (21-32) mmol/L Anion Gap 15.7 (10-20) mmol/L BUN 51 H D (7-18) mg/dL Creatinine 2.4 H D (0.70-1.30) mg/dL Est Cr Clr Drug Dosing TNP Estimated GFR (MDRD) 28 Glucose 75 (74-106) mg/dL Calcium 8.1 L (8.5-10.1) mg/dL Corrected Calcium 8.58 (8.5-10.1) mg/dL Phosphorus 5.3 H (2.6-4.7) mg/dL Magnesium 2.1 (1.8-2.4) mg/dL Total Bilirubin 0.4 (0.2-1.0) mg/dL AST 15 (15-37) U/L ALT 28 (16-63) U/L Alkaline Phosphatase 82 (46-116) U/L Troponin I < 0.017 (<=0.056) ng/mL C-Reactive Protein < 0.2 (<=0.9) mg/dL NT-Pro-B Natriuret Pep 312 H (<=125) pg/mL Total Protein 6.0 L (6.4-8.2) g/dL Albumin 3.4 (3.4-5.0) g/dL Globulin 2.6 Albumin/Globulin Ratio 1.31 Amylase 43 (25-115) U/L Lipase 181 (73-393) U/L TSH, Ultra Sensitive 1.648 (0.358-3.74) uIU/mL Urine Color (YELLOW) Urine Appearance (CLEAR) Urine pH (5.0-8.0) Ur Specific [place] Urine Protein (NEGATIVE) mg/dL Urine Glucose (UA) (NEGATIVE) mg/dL Urine Ketones (NEGATIVE) mg/dL Urine Occult Blood (NEGATIVE) Urine Nitrite (NEGATIVE) Urine Bilirubin (NEGATIVE) Urine Urobilinogen (0.2) EU/dL Ur Leukocyte Esterase (NEGATIVE) Urine RBC (NOT SEEN) /HPF Urine WBC (NOT SEEN) /HPF Ur Squamous Epith Cells (NEGATIVE) /HPF Urine Bacteria (NEGATIVE) /HPF Hyaline Casts (NEGATIVE) /HPF Urine Mucus (NEGATIVE) /LPF 11/22/18 Range/Units 18:56 WBC (4.0-10.0) x10^3/uL RBC (4.5-6.0) x10^6/uL Hgb (14.0-18.0) g/dL Hct (40.0-52.0) % MCV (78.0-93.0) fL MCH (26.0-32.0) pg MCHC (32.0-36.0) g/dL RDW Coeff of Meg (10.0-15.0) % Plt Count (130-400) x10^3/uL Neut % (Auto) (50.0-80.0) % Lymph % (Auto) (25.0-50.0) % [place] % (Auto) (2.0-11.0) % Eos % (Auto) (0.0-4.0) % Baso % (Auto) (0.2-1.2) % PT (10.0-12.8) SEC INR (2.0-3.5) Sodium (136-145) mmol/L Potassium (3.5-5.1) mmol/L Chloride (98-107) mmol/L Carbon Dioxide (21-32) mmol/L Anion Gap (10-20) mmol/L BUN (7-18) mg/dL Creatinine (0.70-1.30) mg/dL Est Cr Clr Drug Dosing Estimated GFR (MDRD) Glucose (74-106) mg/dL Calcium (8.5-10.1) mg/dL Corrected Calcium (8.5-10.1) mg/dL Phosphorus (2.6-4.7) mg/dL Magnesium (1.8-2.4) mg/dL Total Bilirubin (0.2-1.0) mg/dL AST (15-37) U/L ALT (16-63) U/L Alkaline Phosphatase (46-116) U/L Troponin I (<=0.056) ng/mL C-Reactive Protein (<=0.9) mg/dL NT-Pro-B Natriuret Pep (<=125) pg/mL Total Protein (6.4-8.2) g/dL Albumin (3.4-5.0) g/dL Globulin Albumin/Globulin Ratio Amylase (25-115) U/L Lipase (73-393) U/L TSH, Ultra Sensitive (0.358-3.74) uIU/mL Urine Color Dark yellow H (YELLOW) Urine Appearance Clear (CLEAR) Urine pH 5.5 (5.0-8.0) Ur Specific [place] 1.020 Urine Protein Trace H (NEGATIVE) mg/dL Urine Glucose (UA) Negative (NEGATIVE) mg/dL Urine Ketones Trace H (NEGATIVE) mg/dL Urine Occult Blood Negative (NEGATIVE) Urine Nitrite Negative (NEGATIVE) Urine Bilirubin Small H (NEGATIVE) Urine Urobilinogen 2.0 H (0.2) EU/dL Ur Leukocyte Esterase Negative (NEGATIVE) Urine RBC 0-5 (NOT SEEN) /HPF Urine WBC 0-5 (NOT SEEN) /HPF Ur Squamous Epith Cells Rare (NEGATIVE) /HPF Urine Bacteria Not seen (NEGATIVE) /HPF Hyaline Casts Many H (NEGATIVE) /HPF Urine Mucus Few H (NEGATIVE) /LPF Meds: Medications Generic Name Dose Route Start Last Admin Trade Name Freq PRN Reason Stop Dose Admin Sodium Chloride 1,000 mls @ 1,000 mls/hr 11/22/18 19:25 Normal Saline IV 11/22/18 20:24 .BOLUS ONE Sodium Chloride 10 ml 11/22/18 17:45 Saline Flush FLUSH ASDIRECTED PRN Keep Vein Open Discontinued Medications Generic Name Dose Route Start Last Admin Trade Name Dottie PRN Reason Stop Dose Admin Sodium Chloride 1,000 mls @ 1,000 mls/hr 11/22/18 18:39 11/22/18 18:00 Normal Saline IV 11/22/18 19:38 1,000 mls/hr .BOLUS ONE Administration Ondansetron HCl 4 mg 11/22/18 18:39 11/22/18 18:47 Zofran IVPUSH 11/22/18 18:40 4 mg ONETIME ONE Administration Departure - Departure Time of Disposition: 08:21 Disposition: Home, Self-Care 01 Clinical Impression: Gastroenteritis - Discharge Information Instructions: Dehydration, Adult, [id number], Chronic Kidney Disease, Adult, [id number] Referrals: Debby Montelongo MD [Primary Care Provider] - Forms: ED Department Discharge Additional Instructions: Please follow-up in the clinic for repeat labs in the AM. If you decide you want to be admitted, return to ER and we will directly admit to the floor. Continue to drink plenty of fluids. I would avoid solid foods and stick with clear liquids. Follow-up in clinic tomorrow with Dr. Montelongo for repeat labs. Return to ER if unable to hold down fluids, if you have chest pain, shortness of breath, or lightheadedness. Off work tomorrow and due to illness. - My Orders Last 24 Hours: My Active Orders 11/22/18 17:45 Sodium Chloride 0.9% [Saline Flush] 10 ml FLUSH ASDIRECTED PRN 11/22/18 17:46 EKG Documentation Completion [RC] STAT 11/22/18 17:47 Peripheral IV Insertion Adult [OM.PC] Routine 11/22/18 19:25 Sodium Chloride 0.9% [Normal Saline] 1,000 ml IV .BOLUS - Assessment/Plan Last 24 Hours: My Active Orders 11/22/18 17:45 Sodium Chloride 0.9% [Saline Flush] 10 ml FLUSH ASDIRECTED PRN 11/22/18 17:46 EKG Documentation Completion [RC] STAT 11/22/18 17:47 Peripheral IV Insertion Adult [OM.PC] Routine 11/22/18 19:25 Sodium Chloride 0.9% [Normal Saline] 1,000 ml IV .BOLUS Plan: Pt. adamantly refuses admission or transfer. He has had 2 episodes of DOMENICO in the past month which is very concerning. His creatinine is back up to 2.4 again. FOBT was negative. He states that he wants to be discharged and will follow-up in clinic tomorrow AM. He was given an invitation to return to [facility] is he is able to be admitted; he states that he has to watch his dog. I was given 2 liters of normal saline and zofran 4 mg IV. He reported complete resolution of the nausea, vomiting, and abdominal cramping. Pt. was subsequently discharged. He was advised to consume clear liquids only [facility], [place], and to slowly start advancing his diet. He will continue to abstain for use of NSAIDs. All questions were answered.
== END 2018-11-22 20:21 | disposition home or self-care (01) ==
LOC: VM.ED 17:11
DX: K52.9 Noninfective gastroenteritis and colitis, unspecified (principal); I25.2 Old myocardial infarction; I50.9 Heart failure, unspecified; I48.91 Unspecified atrial fibrillation; K21.9 Gastro-esophageal reflux disease without esophagitis; F17.200 Nicotine dependence, unspecified, uncomplicated; Z79.01 Long term (current) use of anticoagulants; Z79.899 Other long term (current) drug therapy; Z95.2 Presence of prosthetic heart valve; Z95.0 Presence of cardiac pacemaker
CPT/HCPCS: 36415; 71045; 80053; 81001; 82150; 83690; 83735; 83880; 84100; 84443; 84484; 85025; 85610; 86140; 93005; 96361; 96374; 99284; J2405; J7030

== ENCOUNTER 2019-11-14 08:08 | Emergency (ER) | payer OTHER ==
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
[2019-11-14 08:42] LABS: CHLORIDE,CL 104 mmol/L (98-107); SODIUM,NA 139 mmol/L (136-145)
[2019-11-14 08:43] LABS: ANION GAP 9.7 mmol/L (10-20)
--- NOTE | 2019-11-14 09:12 | CT ---
[id number] CT/CT Head WO IV EXAM: CT Head WO IV CLINICAL DATA: TRAUMA ANTICOAGULATED PATIENT COMPARISON: NO PREVIOUS SIMILAR EXAM IS AVAILABLE FOR COMPARISON. FINDINGS: What appears to be blood in the interhemispheric fissure posteriorly is thought to be within the dural sinuses and a normal finding There is no mass or mass effect. There is no hemorrhage or hydrocephalus. There are no extra-axial fluid collections. There are no sites of abnormal attenuation. IMPRESSION: NO PLAIN CT EVIDENCE OF ACUTE INTRACRANIAL PROCESS. Pelon Segura MD 11/14/19 0911 Thank you for allowing us to participate in the care of your patient.
--- NOTE | 2019-11-14 09:17 | CT ---
[id number] CT/CT Cervical Spine WO IV Exam: CT Cervical Spine WO IV Clinical Data: TRAUMA COMPARISON: NO PREVIOUS SIMILAR EXAM IS AVAILABLE FINDINGS: There is no fracture or subluxation There are mild degenerative changes The prevertebral soft tissues are unremarkable IMPRESSION: NO FRACTURE OR SUBLUXATION Pelon Segura MD 11/14/19 0915 Thank you for allowing us to participate in the care of your patient.
== END 2019-11-14 09:42 | disposition home or self-care (01) ==
LOC: VM.ED 08:08
DX: S00.83XA Contusion of other part of head, initial encounter (principal); I50.9 Heart failure, unspecified; I48.91 Unspecified atrial fibrillation; E78.00 Pure hypercholesterolemia, unspecified; J44.9 Chronic obstructive pulmonary disease, unspecified; Z79.01 Long term (current) use of anticoagulants; Z79.899 Other long term (current) drug therapy; V89.2XXA Person injured in unspecified motor-vehicle accident, traffic, initial encounter; Y92.410 Unspecified street and highway as the place of occurrence of the external cause
CPT/HCPCS: 36415; 70450; 72125; 80053; 85025; 85610; 99284-25

== ENCOUNTER 2023-03-26 14:45 | Emergency (ER) | payer OTHER, MEDICAID ==
[2023-03-26 15:00] VITALS: BP 124/65; PULSE 78
[2023-03-26] MEDS ORDERED: Naloxone 0.4 MG/ML SDV IVPUSH PRN (15:03)
[2023-03-26] MEDS: Ondansetron 4 MG/2 ML SDV IVPUSH ONE (15:15)
[2023-03-26] MEDS: HYDROmorphone 1 MG/ML Syringe IVPUSH ONE (15:18)
== END 2023-03-26 16:45 | disposition home or self-care (01) ==
LOC: VM.ED 14:45
DX: S20.212A Contusion of left front wall of thorax, initial encounter (principal); I50.9 Heart failure, unspecified; E78.00 Pure hypercholesterolemia, unspecified; I48.91 Unspecified atrial fibrillation; J44.9 Chronic obstructive pulmonary disease, unspecified; I25.2 Old myocardial infarction; K21.9 Gastro-esophageal reflux disease without esophagitis; Z95.0 Presence of cardiac pacemaker; Z79.899 Other long term (current) drug therapy; F17.200 Nicotine dependence, unspecified, uncomplicated; W01.0XXA Fall on same level from slipping, tripping and stumbling without subsequent striking against object, initial encounter
CPT/HCPCS: 71101; 96374; 96375; 99283; J1170; J2405

== ENCOUNTER 2023-05-05 13:45 | Inpatient (IN) | payer OTHER ==
[2023-05-05] MEDS ORDERED: Sodium Chloride 0.9% 10 ML Syringe FLUSH PRN (14:00)
[2023-05-05] MEDS ORDERED: Albuterol/Ipratropium 3.0-0.5 MG/3 ML Neb Soln NEB PRN (14:10)
[2023-05-05 14:23] LABS: BASOPHILS PERCENT AUTO 0.3 % (0.2-1.2); EOSINOPHILS PERCENT AUTO 0.5 % (0.0-4.0); IMMATURE GRAN ABSOLUTE AUTO 0.01 x10^3/uL (0.00-0.07); LYMPHOCYTES ABSOLUTE AUTO 0.9 x10^3/uL (1.0-4.8); MEAN CORPUSCULAR HEMOGLOBIN 33.5 pg (26.0-32.0); MEAN CORPUSCULAR HGB CONC 34.1 g/dL (32.0-36.0); MEAN CORPUSCULAR VOLUME 98.2 fL (78.0-93.0); MONOCYTES ABSOLUTE AUTO 0.6 x10^3/uL (0.0-0.8); NEUTROPHILS ABSOLUTE AUTO 4.8 x10^3/uL (1.8-7.7); PLATELET COUNT,PLT 143 x10^3/uL (130-400); RED BLOOD CELL COUNT 4.48 x10^6/uL (4.5-6.0); WHITE BLOOD CELL COUNT,WBC 6.4 x10^3/uL (4.0-10.0)
[2023-05-05 14:38] LABS: PROTHROMBIN TIME 10.9 SEC (9.5-12.2)
[2023-05-05 14:50] LABS: A/G RATIO 1.17; ALANINE AMINOTRANSFERASE,ALT 39 U/L (16-63); ALBUMIN 3.5 g/dL (3.4-5.0); ALKALINE PHOSPHATASE 80 U/L (46-116); ASPARTATE AMNIOTRANSFERASE,AST 25 U/L (15-37); BILIRUBIN TOTAL 0.8 mg/dL (0.2-1.0); BLOOD UREA NITROGEN,BUN 21 mg/dL (7-18); CALCIUM 8.9 mg/dL (8.5-10.1); CARBON DIOXIDE,CO2 28 mmol/L (21-32); CHLORIDE,CL 108 mmol/L (98-107); CREATININE 1.1 mg/dL (0.70-1.30); GLUCOSE RANDOM 93 mg/dL (70-99); POTASSIUM,K 4.6 mmol/L (3.5-5.1); PRO B-TYPE NATRIUR PEPT,BNPPRO 3028 pg/mL (<=125); PROTEIN TOTAL,TP 6.5 g/dL (6.4-8.2); SODIUM,NA 145 mmol/L (136-145)
[2023-05-05 14:51] LABS: ANION GAP 13.6 mmol/L (5-15); ESTIMATED GFR 76 mL/min (>=60)
[2023-05-05] MEDS: Furosemide 20 MG/2 ML VIAL IVPUSH SCH (14:54)
[2023-05-05] MEDS: Arformoterol 15 MCG/2 ML Neb Soln NEB SCH ×2 (14:55→20:20)
[2023-05-05] MEDS: Budesonide 0.5 MG/2 ML Neb Susp NEB SCH ×2 (14:55→20:20)
[2023-05-05] MEDS: Spironolactone 25 MG Tab PO SCH (14:55)
[2023-05-05 15:06] LABS: CORONAVIRUS COVID-19 NAA NEGATIVE (NEGATIVE); INFLUENZA A NAA NEGATIVE (NEGATIVE)
[2023-05-05 15:07] LABS: INFLUENZA B NAA NEGATIVE (NEGATIVE); RESPIRATORY SYNCYTIAL VIR NAA NEGATIVE (NEGATIVE)
[2023-05-05] MEDS: Nicotine 21 MG/24 Hr Patch TRDERM SCH (17:56)
[2023-05-05 18:54] LABS: APPEARANCE,URINE CLEAR (CLEAR); BILIRUBIN,URINE NEGATIVE (NEGATIVE); COLOR,URINE LIGHT YELLOW (YELLOW); GLUCOSE,URINE NEGATIVE (NEGATIVE); KETONES,URINE NEGATIVE (NEGATIVE); LEUKOCYTE ESTERASE,URINE NEGATIVE (NEGATIVE); NITRITE,URINE NEGATIVE (NEGATIVE); OCCULT BLOOD,URINE NEGATIVE (NEGATIVE); PROTEIN,URINE NEGATIVE (NEGATIVE); UROBILINOGEN,URINE 0.2 EU/dL (0.2)
[2023-05-05] MEDS ORDERED: Ondansetron 4 MG Tab.DIS PO PRN (19:30)
[2023-05-05] MEDS ORDERED: Acetaminophen 325 MG Tab PO PRN (19:30)
[2023-05-05] MEDS ORDERED: Sennosides 8.6 MG Tab PO PRN (19:30)
[2023-05-05] MEDS: Tamsulosin 0.4 MG Cap.ER PO SCH (20:20)
[2023-05-05 21:00] LABS: ANION GAP 13.3 mmol/L (5-15); CALCIUM 8.5 mg/dL (8.5-10.1); CREATININE 1.1 mg/dL (0.70-1.30); EST CRCL DRUG DOSING (CG) 67.45 mL/min; POTASSIUM,K 4.3 mmol/L (3.5-5.1)
[2023-05-05] MEDS: Sennosides 8.6 MG Tab PO SCH (22:51)
[2023-05-06 07:06] LABS: BASOPHILS PERCENT AUTO 0.2 % (0.2-1.2); EOSINOPHILS ABSOLUTE AUTO 0.1 x10^3/uL (0.0-0.5); EOSINOPHILS PERCENT AUTO 1.4 % (0.0-4.0); HEMOGLOBIN 14.3 g/dL (14.0-18.0); MEAN CORPUSCULAR HEMOGLOBIN 33.4 pg (26.0-32.0); MEAN CORPUSCULAR VOLUME 98.1 fL (78.0-93.0); MONOCYTES ABSOLUTE AUTO 0.5 x10^3/uL (0.0-0.8); MONOCYTES PERCENT AUTO 9.9 % (2.0-11.0); NEUTROPHILS ABSOLUTE AUTO 3.3 x10^3/uL (1.8-7.7); NEUTROPHILS PERCENT AUTO 68.5 % (50.0-80.0); PLATELET COUNT,PLT 126 x10^3/uL (130-400); RED BLOOD CELL COUNT 4.28 x10^6/uL (4.5-6.0); WHITE BLOOD CELL COUNT,WBC 4.9 x10^3/uL (4.0-10.0)
[2023-05-06 07:41] LABS: TSH ULTRASENSITIVE 1.062 uIU/mL (0.358-3.74)
[2023-05-06] MEDS: Budesonide 0.5 MG/2 ML Neb Susp NEB SCH ×2 (07:45→20:31)
[2023-05-06] MEDS: Arformoterol 15 MCG/2 ML Neb Soln NEB SCH ×2 (07:45→20:31)
[2023-05-06] MEDS: Rivaroxaban 10 MG Tab PO SCH (09:06)
[2023-05-06] MEDS: Pantoprazole 40 MG Tab.CR PO SCH (09:07)
[2023-05-06] MEDS: Spironolactone 25 MG Tab PO SCH (09:08)
[2023-05-06] MEDS: Amiodarone 200 MG Tab PO SCH (09:08)
[2023-05-06] MEDS: Citalopram 20 MG Tab PO SCH (09:09)
[2023-05-06] MEDS: Bisoprolol 5 MG Tab PO SCH (09:10)
[2023-05-06] MEDS: atorvaSTATin 40 MG Tab PO SCH (09:12)
[2023-05-06] MEDS: Lisinopril 5 MG Tab PO SCH (09:12)
[2023-05-06] MEDS: Furosemide 20 MG/2 ML VIAL IVPUSH SCH ×2 (09:13→13:56)
[2023-05-06] MEDS: Nicotine 21 MG/24 Hr Patch TRDERM SCH (09:14)
[2023-05-06] MEDS: Doxycycline Monohydrate 100 MG Cap PO SCH ×2 (17:31→21:36)
[2023-05-06] MEDS: Sennosides 8.6 MG Tab PO SCH (20:29)
[2023-05-06] MEDS: Tamsulosin 0.4 MG Cap.ER PO SCH (20:30)
[2023-05-07] MEDS: Arformoterol 15 MCG/2 ML Neb Soln NEB SCH (05:59)
[2023-05-07] MEDS: Budesonide 0.5 MG/2 ML Neb Susp NEB SCH (05:59)
[2023-05-07] MEDS: [UNRECOGNIZED DRUG - REMARK] TRDERM SCH ×2 (06:38→08:32)
[2023-05-07 07:07] LABS: BASOPHILS PERCENT AUTO 0.4 % (0.2-1.2); EOSINOPHILS ABSOLUTE AUTO 0.1 x10^3/uL (0.0-0.5); EOSINOPHILS PERCENT AUTO 1.5 % (0.0-4.0); HEMATOCRIT 43.3 % (40.0-52.0); HEMOGLOBIN 14.5 g/dL (14.0-18.0); IMMATURE GRAN ABSOLUTE AUTO 0.01 x10^3/uL (0.00-0.07); LYMPHOCYTES ABSOLUTE AUTO 0.9 x10^3/uL (1.0-4.8); LYMPHOCYTES PERCENT AUTO 20.8 % (25.0-50.0); MEAN CORPUSCULAR HEMOGLOBIN 32.7 pg (26.0-32.0); MEAN CORPUSCULAR HGB CONC 33.5 g/dL (32.0-36.0); MEAN CORPUSCULAR VOLUME 97.5 fL (78.0-93.0); MONOCYTES ABSOLUTE AUTO 0.3 x10^3/uL (0.0-0.8); MONOCYTES PERCENT AUTO 7.1 % (2.0-11.0); NEUTROPHILS ABSOLUTE AUTO 3.2 x10^3/uL (1.8-7.7); PLATELET COUNT,PLT 129 x10^3/uL (130-400); RED BLOOD CELL COUNT 4.44 x10^6/uL (4.5-6.0); WHITE BLOOD CELL COUNT,WBC 4.5 x10^3/uL (4.0-10.0)
[2023-05-07 07:22] LABS: BLOOD UREA NITROGEN,BUN 22 mg/dL (7-18); CALCIUM 8.3 mg/dL (8.5-10.1); CARBON DIOXIDE,CO2 27 mmol/L (21-32); CHLORIDE,CL 108 mmol/L (98-107); CREATININE 1.1 mg/dL (0.70-1.30); GLUCOSE RANDOM 204 mg/dL (70-99); POTASSIUM,K 3.7 mmol/L (3.5-5.1); SODIUM,NA 144 mmol/L (136-145)
[2023-05-07 07:23] LABS: ANION GAP 12.7 mmol/L (5-15); ESTIMATED GFR 76 mL/min (>=60)
[2023-05-07] MEDS: Doxycycline Monohydrate 100 MG Cap PO SCH (08:26)
[2023-05-07] MEDS: atorvaSTATin 40 MG Tab PO SCH (08:27)
[2023-05-07] MEDS: Spironolactone 25 MG Tab PO SCH (08:27)
[2023-05-07] MEDS: Lisinopril 5 MG Tab PO SCH (08:28)
[2023-05-07] MEDS: Amiodarone 200 MG Tab PO SCH (08:28)
[2023-05-07] MEDS: Citalopram 20 MG Tab PO SCH (08:29)
[2023-05-07] MEDS: Rivaroxaban 10 MG Tab PO SCH (08:29)
[2023-05-07] MEDS: Bisoprolol 5 MG Tab PO SCH (08:30)
[2023-05-07] MEDS: Pantoprazole 40 MG Tab.CR PO SCH (08:30)
[2023-05-07] MEDS: Nicotine 21 MG/24 Hr Patch TRDERM SCH (08:33)
[2023-05-07 08:34] VITALS: BP 92/54
[2023-05-07] MEDS: Furosemide 20 MG/2 ML VIAL IVPUSH SCH (08:34)
[2023-05-07] MEDS ORDERED: Potassium Chloride 10 MEQ Tab.ER PO ONE (09:00)
[2023-05-07 16:57] VITALS: PULSE 59
== END 2023-05-07 11:00 | disposition home or self-care (01) | DRG 291 ==
LOC: VM.MS 13:45
PROVIDERS: ADMIT Internal Medicine; ATTEND Internal Medicine
DX: I50.43 Acute on chronic combined systolic (congestive) and diastolic (congestive) heart failure (principal); J96.21 Acute and chronic respiratory failure with hypoxia; I42.0 Dilated cardiomyopathy; R04.2 Hemoptysis; J42 Unspecified chronic bronchitis; I48.0 Paroxysmal atrial fibrillation; J44.9 Chronic obstructive pulmonary disease, unspecified; K59.09 Other constipation; K21.9 Gastro-esophageal reflux disease without esophagitis; I27.20 Pulmonary hypertension, unspecified; F17.210 Nicotine dependence, cigarettes, uncomplicated; F41.1 Generalized anxiety disorder; Z79.51 Long term (current) use of inhaled steroids; Z86.718 Personal history of other venous thrombosis and embolism; I25.2 Old myocardial infarction; Z86.010 Personal history of colon polyps; Z86.73 Personal history of transient ischemic attack (TIA), and cerebral infarction without residual deficits; Z85.46 Personal history of malignant neoplasm of prostate; Z95.810 Presence of automatic (implantable) cardiac defibrillator; Z79.01 Long term (current) use of anticoagulants; Z79.899 Other long term (current) drug therapy; Z98.890 Other specified postprocedural states
CPT/HCPCS: 0241U; 36415; 51798; 71046; 80048; 80053; 81003; 83735; 83880; 84443; 84484; 85025; 85610; 93005; 94640; 94667; 94668; 94760; A9270-GY; J1940; J3490

== ENCOUNTER 2023-08-11 09:07 | Inpatient (IN) | payer OTHER ==
[2023-08-11] MEDS ORDERED: Albuterol 0.083% 2.5 MG/3 ML Neb Soln NEB PRN (11:31)
[2023-08-11] MEDS ORDERED: Sodium Chloride 0.9% 10 ML Syringe FLUSH PRN (11:31)
[2023-08-11] MEDS: methylPREDNISolone Sodium Succinate 40 MG/1 ML SDV IVPUSH ONE (12:35)
[2023-08-11] MEDS: Albuterol/Ipratropium 3.0-0.5 MG/3 ML Neb Soln NEB SCH (12:38)
[2023-08-11 14:31] LABS: BASOPHILS PERCENT AUTO 0.2 % (0.2-1.2); EOSINOPHILS PERCENT AUTO 0.5 % (0.0-4.0); HEMATOCRIT 39.3 % (40.0-52.0); HEMOGLOBIN 13.4 g/dL (14.0-18.0); IMMATURE GRAN ABSOLUTE AUTO 0.01 x10^3/uL (0.00-0.07); LYMPHOCYTES ABSOLUTE AUTO 0.5 x10^3/uL (1.0-4.8); MEAN CORPUSCULAR HGB CONC 34.1 g/dL (32.0-36.0); MEAN CORPUSCULAR VOLUME 96.8 fL (78.0-93.0); MONOCYTES ABSOLUTE AUTO 0.2 x10^3/uL (0.0-0.8); MONOCYTES PERCENT AUTO 3.5 % (2.0-11.0); NEUTROPHILS ABSOLUTE AUTO 4.8 x10^3/uL (1.8-7.7); PLATELET COUNT,PLT 150 x10^3/uL (130-400); RED BLOOD CELL COUNT 4.06 x10^6/uL (4.5-6.0); WHITE BLOOD CELL COUNT,WBC 5.5 x10^3/uL (4.0-10.0)
[2023-08-11 14:41] LABS: LYMPHOCYTES PERCENT AUTO 8.6 % (25.0-50.0)
[2023-08-11 14:46] LABS: PROTHROMBIN TIME 9.9 SEC (8.9-11.5)
[2023-08-11 14:58] LABS: A/G RATIO 0.97; ALANINE AMINOTRANSFERASE,ALT 15 U/L (16-63); ALBUMIN 2.9 g/dL (3.4-5.0); ALKALINE PHOSPHATASE 81 U/L (46-116); ASPARTATE AMNIOTRANSFERASE,AST 14 U/L (15-37); BILIRUBIN TOTAL 1.5 mg/dL (0.2-1.0); BLOOD UREA NITROGEN,BUN 15 mg/dL (7-18); CALCIUM 8.5 mg/dL (8.5-10.1); CARBON DIOXIDE,CO2 30 mmol/L (21-32); CHLORIDE,CL 105 mmol/L (98-107); EST CRCL DRUG DOSING (CG) 64.52 mL/min; GLUCOSE RANDOM 185 mg/dL (70-99); POTASSIUM,K 3.9 mmol/L (3.5-5.1); PRO B-TYPE NATRIUR PEPT,BNPPRO 683 pg/mL (<=125); PROTEIN TOTAL,TP 5.9 g/dL (6.4-8.2); SODIUM,NA 142 mmol/L (136-145)
[2023-08-11 15:01] LABS: ANION GAP 10.9 mmol/L (5-15); C-REACTIVE PROTEIN < 0.50 mg/dL (<=0.50); ESTIMATED GFR 85 mL/min (>=60)
[2023-08-11] MEDS ORDERED: Sennosides/Docusate Sodium 50-8.6 MG Tab PO PRN (15:14)
[2023-08-11] MEDS: Tamsulosin 0.4 MG Cap.ER PO SCH (20:33)
[2023-08-11] MEDS: Acetaminophen 500 MG Tab PO PRN (21:55)
[2023-08-11] MEDS: Doxycycline Monohydrate 100 MG Cap PO SCH (22:15)
[2023-08-12] MEDS: Arformoterol 15 MCG/2 ML Neb Soln NEB SCH (06:24)
[2023-08-12 06:43] LABS: HEMATOCRIT 35.7 % (40.0-52.0); HEMOGLOBIN 12.4 g/dL (14.0-18.0); IMMATURE GRAN ABSOLUTE AUTO 0.01 x10^3/uL (0.00-0.07); LYMPHOCYTES ABSOLUTE AUTO 0.6 x10^3/uL (1.0-4.8); MEAN CORPUSCULAR HEMOGLOBIN 33.3 pg (26.0-32.0); MEAN CORPUSCULAR HGB CONC 34.7 g/dL (32.0-36.0); MONOCYTES ABSOLUTE AUTO 0.7 x10^3/uL (0.0-0.8); NEUTROPHILS ABSOLUTE AUTO 7.2 x10^3/uL (1.8-7.7); PLATELET COUNT,PLT 130 x10^3/uL (130-400); RED BLOOD CELL COUNT 3.72 x10^6/uL (4.5-6.0); WHITE BLOOD CELL COUNT,WBC 8.5 x10^3/uL (4.0-10.0)
[2023-08-12 06:52] LABS: NEUTROPHILS PERCENT AUTO 84.9 % (50.0-80.0)
[2023-08-12 07:07] LABS: A/G RATIO 0.9; ALBUMIN 2.6 g/dL (3.4-5.0); ANION GAP 9.2 mmol/L (5-15); BILIRUBIN TOTAL 0.5 mg/dL (0.2-1.0); CALCIUM 8.5 mg/dL (8.5-10.1); CREATININE 0.8 mg/dL (0.70-1.30); EST CRCL DRUG DOSING (CG) 83.13 mL/min; POTASSIUM,K 4.2 mmol/L (3.5-5.1); PROTEIN TOTAL,TP 5.5 g/dL (6.4-8.2)
[2023-08-12] MEDS: Lisinopril 5 MG Tab PO SCH (08:22)
[2023-08-12] MEDS: Pantoprazole 40 MG Tab.CR PO SCH (08:24)
[2023-08-12] MEDS: Bisoprolol 5 MG Tab PO SCH (08:24)
[2023-08-12] MEDS: Furosemide 20 MG Tab PO SCH (08:24)
[2023-08-12] MEDS: Amiodarone 200 MG Tab PO SCH (08:28)
[2023-08-12] MEDS: Rivaroxaban 10 MG Tab PO SCH (08:28)
[2023-08-12] MEDS: Nicotine 21 MG/24 Hr Patch TRDERM SCH (08:29)
[2023-08-12] MEDS: atorvaSTATin 40 MG Tab PO SCH (08:29)
[2023-08-12] MEDS: Escitalopram 10 MG Tab PO SCH (08:30)
[2023-08-12] MEDS: [UNRECOGNIZED DRUG - REMARK] TRDERM SCH (08:30)
[2023-08-12] MEDS: guaiFENesin 600 MG Tab.ER PO SCH (08:36)
[2023-08-12] MEDS: Spironolactone 25 MG Tab PO SCH (08:36)
[2023-08-12] MEDS: Furosemide 40 MG/4 ML VIAL IV ONE (08:36)
[2023-08-12] MEDS: methylPREDNISolone Sodium Succinate 40 MG/1 ML SDV IVPUSH SCH (15:16)
[2023-08-12] MEDS: Tamsulosin 0.4 MG Cap.ER PO SCH (20:58)
[2023-08-13 10:33] VITALS: BP 123/70; PULSE 94
== END 2023-08-13 11:00 | disposition home or self-care (01) | DRG 292 ==
LOC: VM.MS 10:44
PROVIDERS: ADMIT Internal Medicine; ATTEND Internal Medicine
DX: I50.42 Chronic combined systolic (congestive) and diastolic (congestive) heart failure (principal); I42.9 Cardiomyopathy, unspecified; J44.1 Chronic obstructive pulmonary disease with (acute) exacerbation; J96.11 Chronic respiratory failure with hypoxia; E78.00 Pure hypercholesterolemia, unspecified; I25.2 Old myocardial infarction; K21.9 Gastro-esophageal reflux disease without esophagitis; F41.9 Anxiety disorder, unspecified; K59.09 Other constipation; C61 Malignant neoplasm of prostate; I27.20 Pulmonary hypertension, unspecified; R91.1 Solitary pulmonary nodule; I48.91 Unspecified atrial fibrillation; R73.9 Hyperglycemia, unspecified; F17.210 Nicotine dependence, cigarettes, uncomplicated; Z95.0 Presence of cardiac pacemaker; Z99.81 Dependence on supplemental oxygen; Z86.73 Personal history of transient ischemic attack (TIA), and cerebral infarction without residual deficits; Z79.01 Long term (current) use of anticoagulants; Z79.899 Other long term (current) drug therapy; Z98.890 Other specified postprocedural states; Z86.010 Personal history of colon polyps
CPT/HCPCS: 36415; 71046; 80053; 82947; 83880; 84484; 85025; 85610; 86140; 94640; A9270-GY; J1940; J2920; J3490; J7620-GY

== ENCOUNTER 2024-11-02 07:22 | Day surgery (SDC) | payer OTHER, MEDICAID ==
[~2024-11-02 07:22] MED LIST: Lactated Ringers 1,000 ML IV SCH
[2024-11-02] MEDS: Lactated Ringers 1,000 ML IV SCH (07:55)
[2024-11-02] MEDS ORDERED: Propofol 200 MG/20 ML SDV ONE ×2 (09:21→10:39)
[2024-11-02] MEDS ORDERED: Midazolam 1 MG/ML 2 ML SDV ONE (09:21)
[2024-11-02] MEDS ORDERED: ePHEDrine 50 MG/ML SDV ONE (10:15)
[2024-11-02] MEDS ORDERED: Flumazenil 0.1 MG/ML 5 ML MDV ONE (10:15)
[2024-11-02 10:59] VITALS: BP 115/56; PULSE 90
== END 2024-11-02 11:38 | disposition home or self-care (01) ==
LOC: VM.SDS 07:22
PROVIDERS: ATTEND Family Medicine
DX: D12.3 Benign neoplasm of transverse colon (principal); D12.5 Benign neoplasm of sigmoid colon; K59.09 Other constipation; K57.30 Diverticulosis of large intestine without perforation or abscess without bleeding; I48.91 Unspecified atrial fibrillation; I50.42 Chronic combined systolic (congestive) and diastolic (congestive) heart failure; Z79.899 Other long term (current) drug therapy; Z86.0100 Personal history of colon polyps, unspecified
CPT/HCPCS: 00811; J2250; J2704; J3490; J7120